=== PATIENT | female | born 1985 ===

== ENCOUNTER 2025-06-10 09:00 | Day surgery (SDC) | payer OTHER ==
[2025-06-04 13:24] VITALS: BP 101/64
[~2025-06-10] VITALS: Ht 165.1 cm; Wt 54.4 kg
[~2025-06-10 09:00] MED LIST: MULTIPLE VITAM1 EAC2 PO
[2025-06-10] MEDS ORDERED: CEFAZOLIN SODIUM 1,000 MG VIAL ONE (10:17)
[2025-06-10] MEDS ORDERED: BUPIVACAINE HCL/MPF 0.5% 30ML VIAL ONE (10:34)
[2025-06-10] MEDS ORDERED: LIDOCAINE HCL 1%/EPINEPHRINE 20ML VIAL IJ ONE (10:37)
[2025-06-10] MEDS ORDERED: KETOROLAC TROMETHAMINE 30 MG VIAL IV ONE (12:00)
[2025-06-10] MEDS ORDERED: KETO10TA2 PO (12:29)
[2025-06-10] MEDS ORDERED: TYLENOL ARTHRI650 MG PO (12:29)
[2025-06-10] MEDS ORDERED: TRAMADOL HCL50 MG PO (12:29)
[2025-06-10] MEDS ORDERED: MIRALAX17 GM PO (12:39)
== END 2025-06-10 16:00 | disposition home or self-care (01) ==
LOC: CIR.AMB 09:00
PROVIDERS: ATTEND Surgery
DX: K42.0 Umbilical hernia with obstruction, without gangrene (principal); K43.6 Other and unspecified ventral hernia with obstruction, without gangrene